=== PATIENT | female | born 1980 | race Caucasian/White ===

== ENCOUNTER → 2019-10-01 | Outpatient (CLI) | payer OTHER | LOC: MC.RAD 16:30 | DX: Z12.31 Encounter for screening mammogram for malignant neoplasm of breast (principal) ==

== ENCOUNTER → 2022-08-09 | Outpatient (CLI) | payer OTHER ==
[~2022-08-09] MED LIST: COZAAR 50MG50 MG/TAB PO
== END ==
LOC: MC.RAD 14:11
DX: Z12.31 Encounter for screening mammogram for malignant neoplasm of breast (principal)